=== PATIENT | female | born 1985 | race Two or more races ===

== ENCOUNTER 2024-05-28 15:48 | Outpatient (CLI) | payer OTHER | END 2024-05-28 15:51 | disposition home or self-care (01) | LOC: PRENATAL 15:48 | PROVIDERS: ATTEND Obstetrics & Gynecology Maternal & Fetal Medicine | DX: O36.80X0 Pregnancy with inconclusive fetal viability, not applicable or unspecified (principal); Z36.82 Encounter for antenatal screening for nuchal translucency; Z3A.11 11 weeks gestation of pregnancy ==

== ENCOUNTER 2024-06-11 13:25 | Outpatient (CLI) | payer OTHER | END 2024-06-11 13:26 | disposition home or self-care (01) | LOC: PRENATAL 13:25 | PROVIDERS: ATTEND Obstetrics & Gynecology Maternal & Fetal Medicine | DX: O36.80X0 Pregnancy with inconclusive fetal viability, not applicable or unspecified (principal); Z36.82 Encounter for antenatal screening for nuchal translucency; O09.522 Supervision of elderly multigravida, second trimester; Z3A.14 14 weeks gestation of pregnancy ==

== ENCOUNTER 2024-07-23 16:04 | Outpatient (CLI) | payer OTHER | END 2024-07-23 16:05 | disposition home or self-care (01) | LOC: PRENATAL 16:04 | PROVIDERS: ATTEND Obstetrics & Gynecology Maternal & Fetal Medicine | DX: O35.3XX0 Maternal care for (suspected) damage to fetus from viral disease in mother, not applicable or unspecified (principal); O44.00 Complete placenta previa NOS or without hemorrhage, unspecified trimester; O09.529 Supervision of elderly multigravida, unspecified trimester; Z3A.20 20 weeks gestation of pregnancy ==

== ENCOUNTER 2024-10-16 13:56 | Outpatient (CLI) | payer OTHER | END 2024-10-16 13:57 | disposition home or self-care (01) | LOC: PRENATAL 13:56 | PROVIDERS: ATTEND Obstetrics & Gynecology Maternal & Fetal Medicine | DX: O26.849 Uterine size-date discrepancy, unspecified trimester (principal); O36.8199 Decreased fetal movements, unspecified trimester, other fetus; O09.529 Supervision of elderly multigravida, unspecified trimester; Z3A.34 34 weeks gestation of pregnancy ==

== ENCOUNTER 2024-10-31 11:04 | Outpatient (CLI) | payer OTHER ==
[2024-10-31 11:20] VITALS: BP 116/73
[2024-10-31 11:53] LABS: HEMATOCRIT 31.3 % (36.0-45.00); HEMOGLOBIN 10.3 g/dL (12.0-15.00); MEAN CELL VOLUME 81.9 fL (80.00-100.00); MEAN CORPUSCULAR HEMOGLOBIN 26.9 pg (27.00-32.0); MEAN CORPUSCULAR HGB CONC 32.8 g/dl (32.0-36.0); PLATELET COUNT 232 K/uL (150-450); RED BLOOD COUNT 3.82 M/uL (4.00-6.00); RED CELL DISTRIBUTION WIDTH 13.2 % (11.5-14.5)
[2024-10-31 12:02] LABS: URINE APPEARANCE Clear; URINE BILIRRUBIN Negative (NEGATIVE); URINE BLOOD Negative; URINE COLOR Yellow; URINE KETONE Negative (NEGATIVE); URINE LEUKOCYTE Negative; URINE NITRATE Negative; URINE PROTEIN Negative (NEGATIVE); URINE UROBILINOGEN 0.2 E.U./dl
[2024-10-31 12:08] LABS: URINE BACTERIA 762.4 uL (0.0-1933); URINE EPITHELIAL CELLS 20.5 uL (0.0-38.8); URINE RBC 9.2 uL (0.0-20.8); URINE WBC 18.5 uL (0.0-23.2)
[2024-10-31 12:22] LABS: URINE GLUCOSE 100 MG/DL (NEGATIVE)
[2024-10-31 13:01] VITALS: BP 116/73
== END 2024-10-31 13:01 | disposition home or self-care (01) ==
LOC: OBS/DEL 11:04
PROVIDERS: Obstetrics & Gynecology; ATTEND Obstetrics & Gynecology
DX: O26.893 Other specified pregnancy related conditions, third trimester (principal); R19.7 Diarrhea, unspecified; Z3A.34 34 weeks gestation of pregnancy

== ENCOUNTER 2024-11-25 13:30 | Inpatient (IN) | payer OTHER ==
[~2024-11-25] VITALS: Ht 162.6 cm; Wt 81.6 kg
[2024-12-03] MEDS ORDERED: AMPICILLIN SODIUM 2,000 MG VIAL ONE (07:27)
[2024-12-03 07:57] VITALS: BP 125/85
[2024-12-03] MEDS ORDERED: MISOPROSTOL 25 MCG/4 ML GEL.W.APPL ONE (08:12)
[2024-12-03 08:27] VITALS: BP 125/85
[2024-12-03] MEDS ORDERED: MISOPROSTOL 25 MCG/4 ML GEL.W.APPL VAG ONE (08:30)
[2024-12-03 08:36] LABS: HEMATOCRIT 31.6 % (36.0-45.00); HEMOGLOBIN 10.3 g/dL (12.0-15.00); MEAN CELL VOLUME 77.7 fL (80.00-100.00); MEAN CORPUSCULAR HEMOGLOBIN 25.3 pg (27.00-32.0); MEAN CORPUSCULAR HGB CONC 32.6 g/dl (32.0-36.0); PLATELET COUNT 253 K/uL (150-450); RED BLOOD COUNT 4.06 M/uL (4.00-6.00); RED CELL DISTRIBUTION WIDTH 14.1 % (11.5-14.5)
[2024-12-03 08:42] LABS: PH,URINE 6.5 (5.0-8.0); URINE APPEARANCE Clear; URINE BILIRRUBIN Negative (NEGATIVE); URINE BLOOD Negative; URINE COLOR Yellow; URINE GLUCOSE Negative (NEGATIVE); URINE KETONE 15 (NEGATIVE); URINE LEUKOCYTE Small; URINE NITRATE Negative; URINE PROTEIN Negative (NEGATIVE); URINE UROBILINOGEN 0.2 E.U./dl
[2024-12-03 08:45] LABS: URINE BACTERIA 3608.2 uL (0.0-1933); URINE EPITHELIAL CELLS 35.4 uL (0.0-38.8); URINE WBC 43.3 uL (0.0-23.2)
[2024-12-03] MEDS ORDERED: RINGERS SOLUTION,LACTATED 1,000 ML IV SCH (09:00)
[2024-12-03] MEDS ORDERED: AMPICILLIN SODIUM 1,000 MG VIAL IV SCH (09:00)
[2024-12-03] MEDS ORDERED: AMPICILLIN SODIUM 2,000 MG VIAL IV ONE (09:00)
[2024-12-03 09:20] LABS: INR 0.97; PARTIAL THROMBOPLASTIN TIME 26.3 SECONDS (22.0-34.0); PROTHROMBIN TIME 10.6 SECONDS (9.0-11.5)
[2024-12-03 10:00] LABS: URINE CAST 0.58 uL (0.0-1.40)
[2024-12-03 11:20] VITALS: BP 128/77
[2024-12-03] MEDS ORDERED: MORPHINE SULFATE 4 MG/ML VIAL IV ONE (12:45)
[2024-12-03] MEDS ORDERED: OXYTOCIN 500 ML IV SCH (12:45)
[2024-12-03 12:50] VITALS: BP 132/88
[2024-12-03 15:23] VITALS: BP 131/86
[2024-12-03] MEDS ORDERED: MORPHINE SULFATE 4 MG/ML CARTRIDGE IV ONE (16:00)
[2024-12-03] MEDS ORDERED: ERYTHROMYCIN BASE OPHT 1GM EACH TUBE OP ONE (16:31)
[2024-12-03] MEDS ORDERED: OXYTOCIN 20 UNITS/1000ML RL PIGGYBAG IV ONE (16:31)
[2024-12-03] MEDS ORDERED: LIDOCAINE HCL 1% 10ML VIAL ONE (16:31)
[2024-12-03] MEDS ORDERED: CHLORHEXIDINE GLUCONATE 120 ML BOTTLE TOP ONE (16:31)
[2024-12-03] MEDS ORDERED: IBUprofen 400 MG TABLET PO PRN (17:30)
[2024-12-03 19:11] VITALS: BP 118/78
[2024-12-04] VITALS: BP 104/64
[2024-12-04 07:17] LABS: HEMATOCRIT 27.9 % (36.0-45.00); HEMOGLOBIN 9.1 g/dL (12.0-15.00); MEAN CELL VOLUME 77.9 fL (80.00-100.00); MEAN CORPUSCULAR HEMOGLOBIN 25.4 pg (27.00-32.0); MEAN CORPUSCULAR HGB CONC 32.5 g/dl (32.0-36.0); PLATELET COUNT 227 K/uL (150-450); RED BLOOD COUNT 3.58 M/uL (4.00-6.00); RED CELL DISTRIBUTION WIDTH 13.9 % (11.5-14.5)
[2024-12-04 08:05] VITALS: BP 115/66
[2024-12-04] MEDS ORDERED: PNV,CALCIUM 72/IRON/FOLIC ACID 1 TAB TABLET PO SCH (09:00)
[2024-12-04 16:08] VITALS: BP 113/82
[2024-12-05] VITALS: BP 115/76
[2024-12-05 08:17] VITALS: BP 107/68
== END 2024-12-05 15:00 | disposition home or self-care (01) | DRG 807 ==
LOC: LDR 12-03 07:12 → OB/GYN 12-03 07:12 → SURH 12-09 13:30
PROVIDERS: ADMIT Obstetrics & Gynecology; ATTEND Obstetrics & Gynecology
PROC: 10E0XZZ Delivery of Products of Conception, External Approach (ICD-10-PCS; principal; 2024-12-03)
PROC: 4A1HXCZ Monitoring of Products of Conception, Cardiac Rate, External Approach (ICD-10-PCS; 2024-12-03)
PROC: 3E033VJ Introduction of Other Hormone into Peripheral Vein, Percutaneous Approach (ICD-10-PCS; 2024-12-03)
PROC: 3E0P7VZ Introduction of Hormone into Female Reproductive, Via Natural or Artificial Opening (ICD-10-PCS; 2024-12-03)
DX: O99.824 Streptococcus B carrier state complicating childbirth (principal); Z37.0 Single live birth; Z3A.39 39 weeks gestation of pregnancy